=== PATIENT | male | born 1995 | race Asian ===

== ENCOUNTER 2018-04-08 11:59 | Emergency (ER) | payer OTHER ==
[2018-04-08 12:09] VITALS: BP 111/72
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
== END 2018-04-08 13:46 | disposition home or self-care (01) ==
DX: S63.502A Unspecified sprain of left wrist, initial encounter (principal); V18.0XXA Pedal cycle driver injured in noncollision transport accident in nontraffic accident, initial encounter; Y93.55 Activity, bike riding; Y99.8 Other external cause status